=== PATIENT | male | born 1960 | race Caucasian/White ===

== ENCOUNTER 2017-11-10 10:02 | Outpatient (CLI) | payer OTHER | END 2017-11-10 10:03 | disposition home or self-care (01) | LOC: BICULT 10:02 | PROVIDERS: ATTEND Specialist | DX: R10.9 Unspecified abdominal pain (principal) | CPT/HCPCS: 76700; 76856 ==

== ENCOUNTER 2017-12-29 13:43 | Outpatient (CLI) | payer OTHER ==
--- NOTE | 2017-12-29 14:57 | CT ---
ABDOMEN AND PELVIC CT SCAN WITHOUT IV CONTRAST: Date: 12/29/17 HISTORY: 57-year-old male with history of known renal mass and renal stones. Patient has bilateral flank pain. FINDINGS: Lung bases are clear. Small, 1.0 cm diameter, low attenuation focus in the left lobe of the liver, statistically a small cy st. The gallbladder, pancreas, spleen, and adrenal glands are unremarkable. There are bilateral nonobstructing renal calculi. There is a somewhat poorly circumscribed 2.2 cm colette meter mass involving the lateral aspect of the upper pole of the right kidney, possibly a slightly co mplicated cyst, which is not completely characterized on this single noncontrast study. No evidence f or acute obstruction or ureteral calculus. No CT evidence for acute appendicitis. Unremarkable appearing urinary bladder. Prostatic calcificatio ns are noted. IMPRESSION: 1. Nonobstructing bilateral renal calculi. 2. 2.2 cm diameter low attenuation mass involving the lateral aspect of the upper right kidney, not definitively characterized, possibly a slightly complicated cyst. 3. Small cyst in left lobe of liver. 4. No evidence for other significant acute process in abdomen or pelvis. POS: [facility]
== END 2017-12-29 13:44 | disposition home or self-care (01) ==
LOC: BICCT 13:43
PROVIDERS: ATTEND Urology
DX: N20.0 Calculus of kidney (principal); N28.89 Other specified disorders of kidney and ureter; K76.89 Other specified diseases of liver
CPT/HCPCS: 74176

== ENCOUNTER 2017-12-30 16:49 | Outpatient (CLI) | payer OTHER ==
[2017-12-30 17:49] LABS: Bilirubin Negative (Negative); Blood, Urine Small (Negative); Clarity CLEAR (Clear); Glucose, Urine (Dipstick) Negative (Negative); Hemoglobin 15.9 g/dL (14.0-18.0); Leukocyte Negative (Negative); Mean Corpuscular HGB CONC 33.3 g/dL (32.0-36.0); Mean Corpuscular Hemoglobin 30.9 pg (27.0-31.0); Mean Corpuscular Volume 92.9 fL (78.0-98.0); Mean Platelet Volume 8.7 fL (7.4-10.4); Nitrite Negative (Negative); Platelet Count 209 thou/uL (130-400); Protein, Urine (Dipstick) Negative (Neg-Trace); RBC Distribution Width 11.4 % (11.5-14.5); Red Blood Cell (RBC) Count 5.14 mill/uL (4.70-6.10); Specific Gravity, Urine 1.004 (1.002-1.036); Urobilinogen 0.2 mg/dL (0.2-1.0); White Blood Cell (WBC) Count 8.2 thou/uL (4.8-10.8)
[2017-12-30 17:51] LABS: Bacteria/HPF None Seen HPF (None Seen); Hyaline Casts/LPF 0-3 HYALINE CAST LPF (0-3 Hyaline); RBC/HPF 0-3 HPF (0-3); Squamous Epithelial None Seen HPF (0-3); WBC/HPF None Seen HPF (0-3)
[2017-12-30 17:55] LABS: Prothrombin Time 12.9 SEC (12.0-14.7)
[2017-12-30 17:56] LABS: PTT 30.7 SEC (22.9-36.1)
--- NOTE | 2017-12-30 18:00 | RAD ---
PA AND LATERAL CHEST: Date: 12/30/17 HISTORY: Preoperative evaluation. FINDINGS: Cardiac silhouette and pulmonary vasculature are within normal limits. The lungs are clear. Osseous s tructures are intact. IMPRESSION: No acute cardiopulmonary process. POS: [facility]
[2017-12-30 18:18] LABS: ALT (SGPT) 9 U/L (8-55); AST (SGOT) 15 U/L (5-34); Albumin 4.5 g/dL (3.5-5.0); Alkaline Phosphatase 87 U/L (40-150); Anion Gap 9 mmol/L (10-20); BUN (Urea Nitrogen) 5 mg/dL (8.4-25.7); Bilirubin, Total 0.6 mg/dL (0.2-1.2); Calc. Creatinine Clearance 0 mL/min (70-130); Calcium 9.5 mg/dL (7.8-10.44); Carbon Dioxide 28 mmol/L (22-29); Chloride 104 mmol/L (98-107); Estimated GFR-MDRD Greater than 90; Globulin 3.2 g/dL (2.4-3.5); Glucose 86 mg/dL (70-105); Potassium 3.8 mmol/L (3.5-5.1); Protein, Total 7.7 g/dL (6.0-8.3); Sodium 137 mmol/L (136-145)
== END 2017-12-30 16:50 | disposition home or self-care (01) ==
LOC: LABBT 16:49
PROVIDERS: ATTEND Urology
DX: Z01.812 Encounter for preprocedural laboratory examination (principal); N28.89 Other specified disorders of kidney and ureter
CPT/HCPCS: 71046; 80053; 81001; 85027; 85610; 85730; 86850; 86900; 86901; 87086

== ENCOUNTER 2017-12-30 17:00 | Inpatient (IN) | payer OTHER ==
[2018-01-05] MEDS ORDERED: Levofloxacin 500 mg/D5W 100 ml Premix Bag ONE (06:06)
[2018-01-05] MEDS ORDERED: Sodium Chloride 0.9% 100 ML ONE (06:06)
[2018-01-05] MEDS ORDERED: CEFAZOLIN 1 GM VIAL ONE (06:06)
[2018-01-05] MEDS ORDERED: Midazolam HCl 2 mg/2 ml Vial ONE (06:35)
[2018-01-05] MEDS ORDERED: Fentanyl 100 MCG/2 ML VIAL ONE (06:35)
[2018-01-05] MEDS ORDERED: Acetaminophen 1,000 MG in Premix Bag 1 BAG IVPB PRN (07:23)
[2018-01-05] MEDS ORDERED: diphenhydrAMINE 25 MG CAP PO PRN (07:30)
[2018-01-05] MEDS ORDERED: Hydrocerin (Eucerin) Cream 120 gm Jar TOP PRN (07:30)
[2018-01-05] MEDS ORDERED: Promethazine HCl 25 MG/ML VIAL IM PRN ×2 (07:30→10:54)
[2018-01-05] MEDS ORDERED: traMADol HCl 50 MG TAB PO PRN ×2 (07:30)
[2018-01-05] MEDS ORDERED: HYDROcodone/Acetaminophen 5/325 mg Tablet PO PRN ×2 (07:30)
[2018-01-05] MEDS ORDERED: diphenhydrAMINE 50 MG/ML VIAL IM PRN (07:30)
[2018-01-05] MEDS ORDERED: diphenhydrAMINE 50 MG/ML VIAL IVP PRN ×2 (07:30→11:22)
[2018-01-05] MEDS ORDERED: Zolpidem Tartrate 5 MG TAB PO PRN (07:30)
[2018-01-05] MEDS ORDERED: Bupivacaine 0.25% 10 ML VIAL EPIDURAL PRN (07:30)
[2018-01-05] MEDS ORDERED: Naloxone HCl 0.4 mg/ml Vial IV PRN (07:30)
[2018-01-05] MEDS ORDERED: Ondansetron HCl/PF 4 MG/2 ML Vial IVP PRN ×2 (07:30→10:54)
[2018-01-05] MEDS ORDERED: Naloxone HCl 0.4 mg/ml Vial IVP PRN (07:30)
[2018-01-05] MEDS ORDERED: Promethazine HCl 25 MG SUPP PR PRN (07:30)
[2018-01-05] MEDS ORDERED: Promethazine HCl 25 MG/ML VIAL SLOW IVP PRN (10:54)
[2018-01-05] MEDS ORDERED: ePHEDrine/0.9% NaCl/PF SYRINGE 50 mg/10 ml ONE (11:06)
[2018-01-05] MEDS ORDERED: Lidocaine 1% PF 5 ML VIAL ONE (11:06)
[2018-01-05] MEDS ORDERED: Glycopyrrolate 0.2 MG/ML 5 ML SYRINGE ONE (11:06)
[2018-01-05] MEDS ORDERED: PROPOFOL 200 MG/20 ML VIAL ONE (11:06)
[2018-01-05] MEDS ORDERED: Vecuronium 10 MG VIAL ONE (11:06)
[2018-01-05] MEDS ORDERED: Dexamethasone 20 MG/5 ML VIAL ONE (11:06)
[2018-01-05] MEDS ORDERED: Ondansetron HCl/PF 4 MG/2 ML Vial ONE (11:06)
[2018-01-05] MEDS ORDERED: Mag-Al 1200 mg/1200 mg/30 ML UDCUP PO PRN (11:22)
[2018-01-05] MEDS ORDERED: hydrALAZINE 20 MG/ML VIAL SLOW IVP PRN ×2 (11:22)
[2018-01-05 11:47] LABS: #Lymphocytes 1.2 thou/uL (1.20-3.40); #Monocytes 0.5 thou/uL (0.11-0.59); #Neutrophils 13.3 thou/uL (1.40-6.50); %Basophils 0.2 % (0.0-1.0); %Eosinophils 0.1 % (0.0-10.0); %Lymphocytes 8.1 % (21.0-51.0); %Monocytes 3.5 % (0.0-10.0); Hemoglobin 13.5 g/dL (14.0-18.0); Mean Corpuscular HGB CONC 33.6 g/dL (32.0-36.0); Mean Corpuscular Hemoglobin 30.9 pg (27.0-31.0); Mean Corpuscular Volume 92.2 fL (78.0-98.0); Mean Platelet Volume 8.3 fL (7.4-10.4); Platelet Count 164 thou/uL (130-400); RBC Distribution Width 11.3 % (11.5-14.5); Red Blood Cell (RBC) Count 4.36 mill/uL (4.70-6.10); White Blood Cell (WBC) Count 15.1 thou/uL (4.8-10.8)
[2018-01-05 12:07] LABS: Anion Gap 13 mmol/L (10-20); BUN (Urea Nitrogen) 7 mg/dL (8.4-25.7); Calc. Creatinine Clearance 77 mL/min (70-130); Calcium 8.6 mg/dL (7.8-10.44); Carbon Dioxide 23 mmol/L (22-29); Chloride 106 mmol/L (98-107); Estimated GFR-MDRD Greater than 90; Glucose 140 mg/dL (70-105); Potassium 3.6 mmol/L (3.5-5.1); Sodium 138 mmol/L (136-145)
--- NOTE | 2018-01-05 12:28 | RAD ---
CHEST ONE VIEW: History: Repeat for pneumothorax. FINDINGS: There is slight decrease in the right sided pneumothorax measuring approximately 9 mm from the margin of the ribs to the pleural line. Atelectasis right lower lobe. IMPRESSION: Size decrease right sided pneumothorax. POS: [facility]
--- NOTE | 2018-01-05 12:53 | OP ---
DATE OF SERVICE: 01/05/2018 PREOPERATIVE DIAGNOSES: 1. A 57-year-old male with right upper pole mesophytic 2 cm renal mass suspicious for renal cell carcinoma. 2. Bilateral nonobstructing renal calculi. POSTOPERATIVE DIAGNOSES: 1. A 57-year-old male with right upper pole mesophytic 2 cm renal mass suspicious for renal cell carcinoma. 2. Bilateral nonobstructing renal calculi. PROCEDURE: Right open partial nephrectomy. SURGEON: Julia Aguilera D.O. ANESTHESIA: General epidural. COMPLICATIONS: postop CXR demonstrating 15% right pneumothorax DISPOSITION: To recovery room in stable condition. ESTIMATED BLOOD LOSS: 150-200 mL. IV FLUIDS: 2 liters. INTRAOPERATIVE FINDINGS: Right upper pole mesophytic renal mass suspicious for renal cell carcinoma, densely adherent right upper pole to the perineum. INDICATIONS FOR THE PROCEDURE AND HISTORY: Mr. Irwin is a pleasant 57-year -old male referred to me by Dr. Ott as he was found to have incidental right upper pole renal mass suspicious for renal cell carcinoma. The patient has been fully informed regarding differential diagnosis including benign and malignant etiology. However, as it is highly suspicious for renal cell carcinoma, advised regarding right partial nephrectomy. Risks and complications of the procedure were reviewed with him in detail as well as alternatives the option including total nephrectomy, various approaches both open and laparoscopic, watchful waiting, active surveillance , ablative therapy. He desired to proceed with right open partial nephrectomy. Risks and complications of the procedure including, but not limited to, bleeding, pain, infection, injury to adjacent structures such as major vasculature liver, bowel contents, lung cavity, pneumothorax, possibility of total nephrectomy, renal insufficiency requiring possible hemodialysis, PE DVT. As he does have nonobstructing renal calculi although small, there is a remote possibility of patient requiring a stent if migration of the stone. He verbalizes understanding and desired to proceed. DESCRIPTION OF THE PROCEDURE: After an informed consent is signed, the patient is taken to the operating room, placed in a supine position. Bilateral ALYCE hose , SCDs, and broad-spectrum antibiotics were provided. General endotracheal anesthesia was administered. The patient was placed in right up flank position with all pressure points padded and protected at all times. A 16 Khmer Bhatt catheter was passed while supine and attached to gravity bag. After the patient is appropriately positioned, we made an incision extraperitoneal 11th rib subcostal incision extending from the paraspinous muscle anteriorly. The subcutaneous fascia was opened to the limits of skin incision. The external and internal oblique fascia as transversalis was opened to the limits of skin incision. The retroperitoneal space was then developed using blunt and sharp dissection. The pleura was identified and kept out of harm's way. We did not breach the pleura and was bluntly and sharply dissected the retroperitoneal contents away from the pleura. The peritoneum, especially in the anterior superior portion near the mass was densely adherent to the upper pole of the kidney. Using sharp dissection, we mobilized the peritoneum completely. With the peritoneum mobilized, we used a Bookwalter for self-retaining exposure. The ureter was identified, and then isolated using a vessel loop and kept out of harm's way. We then mobilized the kidney completely off the densely adherent peritoneal attachments of the upper pole. The hilum was then identified. Using a curved Satinsky, we were able to have enough room for clamping hilum intact. Once this was well-developed, we then further mobilized the perirenal fat off the right upper pole renal mass which appeared to be adherent. The fat densely adherent to the mass itself was sent separately as tumor fat. While mobilizing the densely adhering Gerota's fascia, peritoneum off the upper pole, there was an inadvertent small laceration of the right kidney superficial while passing a LigaSure. We repaired this without the hilum clamped with 0 chromic on pledgets, and good hemostasis was noted. This was approximately 2cm away from our margin of resection required for the renal mass. As the hilum was dissected enough for Satinsky, it was clamped en bloc. Subsequently, ice was then placed into the retroperitoneal cavity for cold ischemia for 5 minutes. Subsequently, the ice was removed and we then performed a right partial nephrectomy. We initially scored the right renal mass with electrocautery. Using a back of a knife handle, the mass was bluntly dissected in its entirety. Grossly, normal renal parenchyma was seen with no gross evidence of residual mass in the lone pine kidney.. Frozen sections were negative on margin. There was one collecting system that we saw, which was suture ligated using 4-0 Vicryl in a running fashion. We then placed subsequent hemostatic stitches in the bed of the tumor resection using 4-0 Vicryl. Good hemostasis was noted. At this time, the defect of the kidney was then closed with 0 chromic with pledgets in a horizontal mattress fashion. Adequate closure was noted. We observed the margins of resection with clamp off which demonstrated no significant bleeding of concern. Total clamp time was 25 minutes. Bhavik and Diandra over our site. I mobilized the perirenal fat, and was able to wrap the suture line with perirenal Gerota's fat. The kidney appeared to be in normal anatomical position, ureter without kinking. The wound was copiously irrigated. A #10 DELROY was then placed in the right retroperitoneal space and was sutured to skin using 3-0 nylon. The skin was closed in two layers using 0 PDS. Prior to closure, we inspected the peritoneum and the pleural edge, which demonstrated no significant defect that could be identified. The patient tolerated the procedure well and transported to the recovery room in stable condition. [facility]
--- NOTE | 2018-01-05 14:31 | RAD ---
ONE VIEW CHEST: History: Evaluate for pneumothorax. Comparison: 12-05-17 FINDINGS: There appears to be a lateral pleural line along the right hemithorax suggestive of a moderate sized pneumothorax. There is lucency of the right hemithorax relative to the left. IMPRESSION: Concern for moderated sized right sided pneumothorax. Repeat exam recommended. Code CR. Telephoned Dr. Aguilera at 11:37 a.m. POS: [facility]
[2018-01-05] MEDS: Sodium Chloride 0.9% 1,000 ML IV SCH ×2 (15:00→23:10)
--- NOTE | 2018-01-05 15:01 | RAD ---
AP CHEST: Indication: History of right sided pneumothorax. Comparison: 01-05-18 FINDINGS: The right sided pneumothorax has slightly decreased in size. There is a small residual right apical p neumothorax remaining. Epidural catheter is stable. Left lung is clear. Patchy opacities within the r ight lung base are similar. Osseous structures are unchanged. IMPRESSION: 1. Slight decrease in size of right sided pneumothorax. 2. Persistent right basilar airspace opacity. POS: [facility]
[2018-01-05] MEDS: Albuterol Sulfate 1.25 MG/3 ML NEB NEB SCH ×2 (15:10→22:13)
[2018-01-05 15:41] VITALS: BMI 24.3
[2018-01-05] MEDS: cefTRIAXone\\ROCEPHIN 1 GM in Sodium Chloride 0.9% 100 ML IVPB SCH (15:59)
--- NOTE | 2018-01-05 19:51 | CON ---
DATE OF CONSULTATION: 01/05/2018 HISTORY OF PRESENT ILLNESS: Mr. Irwin is a 57-year-old gentleman who underwent a right open par tial nephrectomy today. Postoperatively, chest x-ray was obtained showing a moderate sized right pne umothorax. He has had a followup x-ray approximately 3 hours after his initial x-ray showing near re solution of the pneumothorax. PAST MEDICAL HISTORY: 1. Hyperlipidemia. 2. Renal stones. 3. Tobacco abuse. SOCIAL HISTORY: The patient smokes approximately a pack of cigarettes a day. ALLERGIES: None. PAST SURGICAL HISTORY: Right hand skin graft at age 2. PHYSICAL EXAMINATION LUNGS: Clear bilaterally. ABDOMEN: Soft. There is no crepitance. ASSESSMENT AND PLAN: Postoperative pneumothorax on the right -- the pleura was more than likely viol ated during his nephrectomy and this showed spontaneously continue to resolve.
[2018-01-05] MEDS: Atorvastatin Calcium 10 MG TAB PO SCH (20:06)
[2018-01-05] MEDS: Famotidine/PF 20 mg/2ml Vial SLOW IVP SCH (20:13)
[2018-01-05] MEDS: Docusate 100 MG CAP PO SCH (20:14)
[2018-01-05] MEDS: Simvastatin 20 MG TAB PO SCH (20:14)
[2018-01-05] MEDS ORDERED: Non-Formulary Item 1 EACH (Eszopiclone [Eszopiclone] 1 TAB) PO SCH (21:00)
[2018-01-05] MEDS: Zolpidem Tartrate 5 MG TAB PO SCH (22:10)
[2018-01-06 03:50] LABS: #Lymphocytes 1.5 thou/uL (1.20-3.40); #Monocytes 1.1 thou/uL (0.11-0.59); %Basophils 0.4 % (0.0-1.0); %Eosinophils 0.1 % (0.0-10.0); %Lymphocytes 14.3 % (21.0-51.0); %Monocytes 10.6 % (0.0-10.0); %Neutrophils 74.7 % (42.0-75.0); Hemoglobin 11.3 g/dL (14.0-18.0); Mean Corpuscular HGB CONC 33.6 g/dL (32.0-36.0); Mean Corpuscular Hemoglobin 31.3 pg (27.0-31.0); Mean Corpuscular Volume 93.2 fL (78.0-98.0); Mean Platelet Volume 8.7 fL (7.4-10.4); Platelet Count 143 thou/uL (130-400); RBC Distribution Width 11.3 % (11.5-14.5); Red Blood Cell (RBC) Count 3.62 mill/uL (4.70-6.10); White Blood Cell (WBC) Count 10.7 thou/uL (4.8-10.8)
[2018-01-06 04:09] LABS: Anion Gap 9 mmol/L (10-20); BUN (Urea Nitrogen) 11 mg/dL (8.4-25.7); Calc. Creatinine Clearance 67 mL/min (70-130); Calcium 8.1 mg/dL (7.8-10.44); Carbon Dioxide 23 mmol/L (22-29); Chloride 106 mmol/L (98-107); Estimated GFR-MDRD 74; Glucose 123 mg/dL (70-105); Potassium 3.9 mmol/L (3.5-5.1); Sodium 134 mmol/L (136-145)
[2018-01-06] MEDS: Sodium Chloride 0.9% 1,000 ML IV SCH (05:08)
[2018-01-06] MEDS: Albuterol Sulfate 1.25 MG/3 ML NEB NEB SCH ×3 (06:44→22:05)
[2018-01-06] MEDS ORDERED: Sodium Chloride 0.9% 1,000 ML IV SCH (08:02)
--- NOTE | 2018-01-06 08:34 | RAD ---
CHEST 1 VIEW: HISTORY: Pneumothorax. Followup. COMPARISON: 10/05/17. FINDINGS: Cardiac silhouette is magnified by projection. Pulmonary vasculature is slightly engorged with patch y areas of parenchymal opacity, similar in appearance to the previous exam. Right pneumothorax is sl ightly larger than on the prior exam, now extending up to 1.1 cm from the lateral thoracic wall pleur a. Blunting of the left lateral costophrenic angle. Mediastinum remains midline. Opaque tubing over th e right hilum extending from the right shoulder remains unchanged in position. IMPRESSION: 1. While the right pneumothorax remains small, it has increased in size slightly since the most rece nt study. 2. Left pleural fluid. Mild pulmonary vascular congestion. POS: [facility]
--- NOTE | 2018-01-06 08:36 | PRG ---
DATE OF SERVICE: 01/06/2018 SUBJECTIVE: He had discomfort with inspiration. Mild nausea. Denies emesis. PHYSICAL EXAMINATION: VITAL SIGNS: T-max of 100.0, 99.6, 94, 26, 94% on 2 liters, blood pressure 112/ 47. I's and O's is 2870 in, 1250 out. He is positive 1.3 liters. DELROY output 165 since OR, urine output clear at 1250. LUNGS: Decreased inspiratory effort on the right side consistent with a pneumothorax. ABDOMEN: Soft. Incision is clean, dry and intact. Minimal drainage from the incision site. DELROY draining serosanguineous fluid. Bowel sounds are present; however, somewhat decreased. : Urine output is clear. EXTREMITIES: No cyanosis, clubbing or edema. Bilateral ALYCE hose and SCDs in place. LABORATORY: Pathology pending. Chest x-ray this morning demonstrates stable 15% pneumothorax, slight enlargement. Which I reviewed with Dr. Short. White count is decreased from 15 to 10.7 hemoglobin 13.5 to 11.3 platelet 143. Renal function stable with creatinine 1.04. IMPRESSION AND PLAN: 1. Mr. Irwin is 57-year-old male postop day #1 status post right open partial nephrectomy, pathology pending. 2. Right 15% pneumothorax. CT Surgery has been consulted, daily chest x-ray is advised. will continue IMCU monitoring with continuous pulse ox. It is felt that his pneumothorax will most likely spontaneously resolve. Continue aggressive IS, pulmonary toilet. will recheck H&H this afternoon. The patient to be out of bed. We will hold Lovenox deep venous thrombosis prophylaxis as I am monitoring his H&H and he continues to have serosanguineous output from his DELROY drain. [facility]
[2018-01-06] MEDS: Famotidine/PF 20 mg/2ml Vial SLOW IVP SCH ×2 (09:30→20:32)
[2018-01-06] MEDS: Docusate 100 MG CAP PO SCH ×2 (09:30→20:32)
[2018-01-06] MEDS: cefTRIAXone\\ROCEPHIN 1 GM in Sodium Chloride 0.9% 100 ML IVPB SCH (14:11)
[2018-01-06 15:30] LABS: Hemoglobin 11.8 g/dL (14.0-18.0)
[2018-01-06] MEDS: fentaNYL Citrate/PF 1,250 MCG, Bupivacaine 25 ML in Sodium Chloride 0.9% 250 ML 200 ML EPIDURAL SCH (16:11)
[2018-01-06] MEDS ORDERED: Acetaminophen 325 MG TAB PO PRN (17:49)
[2018-01-06] MEDS: Atorvastatin Calcium 10 MG TAB PO SCH (20:28)
[2018-01-06] MEDS: Simvastatin 20 MG TAB PO SCH (20:33)
[2018-01-06] MEDS ORDERED: Meropenem 2 GM in Admixture Fee 1 EACH IVPB SCH (22:00)
[2018-01-06] MEDS: Meropenem 2 GM in Sodium Chloride 0.9% 100 ML IVPB SCH (22:05)
[2018-01-06] MEDS: Zolpidem Tartrate 5 MG TAB PO SCH (22:05)
--- NOTE | 2018-01-07 01:32 | CON ---
DATE OF CONSULTATION: 01/06/2018 HISTORY OF PRESENT ILLNESS: Mr. Irwin is a 57-year-old male, who underwent a partial nephrectomy. I was consulted because of his presence in the IMU. He actually has no complaints and says he has minimal pain. He did have apparently a pneumothorax yesterday on x-ray that almost completely resolved. Chest radiograph today showed a tiny pneumothorax. He has small left effusion. He denies shortness of breath. He has had a low grade temperature up to 100.8. PAST MEDICAL HISTORY: Remarkable for his: 1. Renal mass that has been resected. 2. Lipid disorder. 3. History of nephrolithiasis. SOCIAL HISTORY: He is a pack a day smoker. He is not a daily drinker. FAMILY HISTORY: Not obtained. REVIEW OF SYSTEM: 10 point review of system completed, otherwise negative. ALLERGIES: He reports no drug allergies. PAST SURGICAL HISTORY: He has had surgical history remarkable for skin grafting when he was a small child. PHYSICAL EXAMINATION: GENERAL: He is in no distress. VITAL SIGNS: He is afebrile, temperature max 100.8, heart rate 83, respiratory rate 16 and still low 20s, oximetry is at 94 on 2 liters, blood pressure 105/57. HEENT: Pupils equal. Sclerae is icteric. NECK: Supple. LUNGS: Clear. HEART: Regular rhythm. S1 and S2 are normal. ABDOMEN: Soft and nontender, without masses. EXTREMITIES: No clubbing, cyanosis, or edema. NEUROLOGIC: Nonfocal. LABORATORY AND X-RAY FINDINGS: Chest radiograph has been reviewed. White count is 10.7, hemoglobin 11.3, platelets 143. Electrolytes were unremarkable. Sodium 134, potassium 3.9, chloride 106, bicarb 23, BUN 11, creatinine 1.04. IMPRESSION: Low grade temperature elevation likely secondary to atelectasis. I do think it is reasonable to blood culture him and change antimicrobial therapy. I will continue to follow with him. We will check a chest x-ray in the morning. This is a 70-minute consult, with greater than 50% of the time was spent coordinating care on the unit. [facility]
[2018-01-07 04:01] LABS: #Lymphocytes 2.6 thou/uL (1.20-3.40); #Monocytes 0.9 thou/uL (0.11-0.59); #Neutrophils 8.8 thou/uL (1.40-6.50); %Eosinophils 0.1 % (0.0-10.0); %Lymphocytes 21.3 % (21.0-51.0); %Monocytes 7.4 % (0.0-10.0); %Neutrophils 71.2 % (42.0-75.0); Hemoglobin 11.5 g/dL (14.0-18.0); Mean Corpuscular HGB CONC 33.7 g/dL (32.0-36.0); Mean Corpuscular Hemoglobin 31.2 pg (27.0-31.0); Mean Corpuscular Volume 92.7 fL (78.0-98.0); Mean Platelet Volume 8.4 fL (7.4-10.4); Platelet Count 137 thou/uL (130-400); RBC Distribution Width 11.2 % (11.5-14.5); Red Blood Cell (RBC) Count 3.68 mill/uL (4.70-6.10); White Blood Cell (WBC) Count 12.4 thou/uL (4.8-10.8)
[2018-01-07 04:18] LABS: Anion Gap 10 mmol/L (10-20); BUN (Urea Nitrogen) 7 mg/dL (8.4-25.7); Calc. Creatinine Clearance 78 mL/min (70-130); Calcium 8.6 mg/dL (7.8-10.44); Carbon Dioxide 25 mmol/L (22-29); Chloride 104 mmol/L (98-107); Estimated GFR-MDRD 90; Glucose 98 mg/dL (70-105); Potassium 3.7 mmol/L (3.5-5.1); Sodium 135 mmol/L (136-145)
[2018-01-07] MEDS: Ondansetron HCl/PF 4 MG/2 ML Vial IVP PRN (05:35)
[2018-01-07] MEDS: Meropenem 2 GM in Sodium Chloride 0.9% 100 ML IVPB SCH ×3 (05:35→21:04)
[2018-01-07] MEDS: Albuterol Sulfate 1.25 MG/3 ML NEB NEB SCH ×3 (06:28→22:12)
--- NOTE | 2018-01-07 08:03 | RAD ---
PORTABLE CHEST 1 VIEW: DATE: 01/07/2018. TIME: 4:34 a.m. HISTORY: Pneumothorax followup. FINDINGS: No significant interval change is seen since the previous day's exam.Small right pneumothorax is stab le. Discussed over the telephone with Dr. Aguilera at 7:40 a.m. CODE CR POS: [facility]
--- NOTE | 2018-01-07 08:22 | PRG ---
DATE OF SERVICE: 01/07/2018 SUBJECTIVE: patient feeling sleepy; easily arousable. He states the pain is well controlled with epidural. He has had mild nausea, not yet passed flatus. He continues to perform aggressive plantar dorsiflexion of the lower extremities. Bilateral ALYCE SCDs are in place. Denies shortness of breath, CP. PHYSICAL EXAMINATION: VITAL SIGNS: Stable. T-max 100.6 at 4:00 p.m. yesterday, has been afebrile subsequently, last Tylenol was given yesterday at 4:00 o' clock with a low-grade temperature. I's and O's 2550 in, urine output 2000. patient is Hep-Locked. DELROY 30 mL over 24 hours, serosanguineous. PULMONARY: Bilateral breath sounds are appreciated. ABDOMEN: Incision is clean, dry, and intact, No significant discharge at the incision site, DELROY is adequately secured. Bowel sounds are present; however, mildly decreased. There is no rigidity, no rebound. EXTREMITIES: No cyanosis, clubbing or edema. Blood culture obtained by Dr. Huggins negative thus far. LABORATORY DATA: white count of 12, hemoglobin 11.5, which has been stable for 24 hours. Renal function is stable at 0.87. Sodium 135, potassium 3.7. 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 Chest x-ray this morning demonstrates stable small right pneumothorax, stable with no significant progression IMPRESSION AND PLAN: 1. Mr. 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 2 Stable right 15% pneumothorax, CT surgery consultation in chart. appreciate Dr. Huggins's consultation. Due to low grade fever he has been changed from ceftriaxone to meropenem, blood culture obtained which is negative thus far. RECOMMENDATION: He will continue aggressive IC, pulmonary toilet, albuterol nebs q.8 hours. His CBC and renal function remained stable. PT walking program has been consulted, as I do want the patient to be aggressively out of bed to expedite return of his bowel function, we will provide Dulcolax x1. Continue clear liquids for now. We'll advance diet, if nausea resolved, passing flatus. Pharmacologic DVT prophylaxis will be provided if H&H stable and DELROY output remains minimal. He will remain in the IMCU likely over the weekend; transferred to surgical floor we'll need to be cleared by pulmonology. Continue Bhatt, meropenem MTDD
[2018-01-07] MEDS: Famotidine/PF 20 mg/2ml Vial SLOW IVP SCH ×2 (09:51→21:04)
[2018-01-07] MEDS: Docusate 100 MG CAP PO SCH ×2 (09:51→21:03)
[2018-01-07] MEDS: Bisacodyl 10 MG SUPP PR PRN (09:52)
--- NOTE | 2018-01-07 10:53 | PRG ---
DATE OF SERVICE: 01/07/2018 Mr. Irwin has no more fever. PHYSICAL EXAMINATION: VITAL SIGNS: His heart rate is 60, respiratory rate 16, oximetry is 96, blood pressure 110/59. LUNGS: Clear. HEART: Regular rhythm. ABDOMEN: Soft. Chest radiograph shows haziness right medial heart border and small pleural effusion on the left. Th ere is a tiny pneumothorax on the right. His abdomen is nontender. Cultures done yesterday are negative. We will continue with broad antimicrobial coverage empirically. It is difficult to say whether or no t he has a pneumonia. Perioperatively given atelectasis, but occurs after surgery and given the fact that his fever started relatively early after surgery. We will continue current antimicrobial care in the IMU.
[2018-01-07] MEDS: Atorvastatin Calcium 10 MG TAB PO SCH (21:03)
[2018-01-07] MEDS: Simvastatin 20 MG TAB PO SCH (21:03)
[2018-01-07] MEDS: fentaNYL Citrate/PF 1,250 MCG, Bupivacaine 25 ML in Sodium Chloride 0.9% 250 ML 200 ML EPIDURAL SCH (21:53)
[2018-01-08 04:00] LABS: #Lymphocytes 1.2 thou/uL (1.20-3.40); #Neutrophils 13.1 thou/uL (1.40-6.50); %Basophils 0.3 % (0.0-1.0); %Eosinophils 0.1 % (0.0-10.0); %Lymphocytes 7.5 % (21.0-51.0); %Monocytes 6.7 % (0.0-10.0); %Neutrophils 85.4 % (42.0-75.0); Hemoglobin 12.3 g/dL (14.0-18.0); Mean Corpuscular HGB CONC 34.1 g/dL (32.0-36.0); Mean Corpuscular Hemoglobin 31.5 pg (27.0-31.0); Mean Corpuscular Volume 92.4 fL (78.0-98.0); Mean Platelet Volume 8.7 fL (7.4-10.4); Platelet Count 146 thou/uL (130-400); RBC Distribution Width 11.1 % (11.5-14.5); Red Blood Cell (RBC) Count 3.91 mill/uL (4.70-6.10); White Blood Cell (WBC) Count 15.3 thou/uL (4.8-10.8)
[2018-01-08 04:33] LABS: Anion Gap 12 mmol/L (10-20); BUN (Urea Nitrogen) 7 mg/dL (8.4-25.7); Calc. Creatinine Clearance 77 mL/min (70-130); Calcium 9.3 mg/dL (7.8-10.44); Carbon Dioxide 26 mmol/L (22-29); Chloride 101 mmol/L (98-107); Estimated GFR-MDRD 89; Glucose 107 mg/dL (70-105); Potassium 4.1 mmol/L (3.5-5.1); Sodium 135 mmol/L (136-145)
[2018-01-08] MEDS: Meropenem 2 GM in Sodium Chloride 0.9% 100 ML IVPB SCH ×3 (06:24→21:05)
[2018-01-08] MEDS: Albuterol Sulfate 1.25 MG/3 ML NEB NEB SCH ×3 (07:11→22:37)
--- NOTE | 2018-01-08 08:24 | RAD ---
CHEST 1 VIEW: HISTORY: Dyspnea. Followup. COMPARISON: 01/07/2018. FINDINGS: Cardiac silhouette is magnified by projection. Pulmonary vasculature unremarkable. Atelectasis at t he left base is stable. Small right apical pneumothorax is unchanged. Mediastinum remains midline. testing projects administrator leads overlie the chest. IMPRESSION: 1. Small right apical pneumothorax, stable. 2. Left basilar atelectasis, stable. POS: [facility]
[2018-01-08] MEDS: Famotidine/PF 20 mg/2ml Vial SLOW IVP SCH ×2 (09:20→21:00)
[2018-01-08] MEDS: Docusate 100 MG CAP PO SCH ×2 (09:21→21:00)
--- NOTE | 2018-01-08 13:07 | PRG ---
DATE OF SERVICE: 01/08/2018 SUBJECTIVE: The patient is status post a right partial nephrectomy with a small right pneumothorax b eing monitored. His diet was advanced yesterday, although he reports not eating anything and still f eeling nauseous without any or at least very minimal gas passing. He is ambulated and he is working on his incentive spirometry. OBJECTIVE: VITALS SIGNS: Stable. T-max 97.8, satting 94%-97% on 2 liters. He had more than 2 liters out from the Bhatt catheter in the past 24 hours and 30-40 for a 24-hour period from the Teddy-Alexander. ABDOMEN: Softly distended with good bowel sounds. Teddy-Alexander drain is serosanguineous. Bhatt ca theter was yellow. He can pull about 1200 on the incentive spirometer. We reviewed this in detail a nd gave him a goal of 1500 by the end of the day. LABORATORY DATA: Reveal a white count slightly up to 15.3. Creatinine is good at 0.88. Chest x-ray revealed stable, which I reviewed personally, but may be slightly improved right pneumothorax. ASSESSMENT AND PLAN: A 57-year-old male status post partial nephrectomy with small right pneumothora x, doing well. Hold his regular food and go back to clears, go easy on his intake, ambulate, pulmona ry toilet, pain for epidural and anesthesia and repeat chest x-ray in the morning.
--- NOTE | 2018-01-08 15:36 | PRG ---
DATE OF SERVICE: 01/08/2018 SUBJECTIVE: The patient is doing reasonably well, had no complaints. OBJECTIVE: VITAL SIGNS: Temperature is 98.2, pulse 76, blood pressure 122/69, O2 saturation 96% on 2 liters. HEENT: Unremarkable. NECK: No JVD. LUNGS: Clear. CARDIAC: S1 and S2 regular. ABDOMEN: Slightly tender along the right flank. EXTREMITIES: No edema. LABORATORY DATA: White blood cell count 15.3, hematocrit 36.1, platelet count 146. BUN 7, creatinin e 0.8. ASSESSMENT: Stable pulmonary status, he could have pneumonia versus atelectasis. He is currently on antibiotics. RECOMMENDATION: He seems to be suitable for transfer out to telemetry. Given that he has an epidura l pump, he probably should remain on monitor.
[2018-01-08] MEDS: Simvastatin 20 MG TAB PO SCH (21:00)
[2018-01-09 03:53] LABS: #Lymphocytes 1.1 thou/uL (1.20-3.40); #Monocytes 1.3 thou/uL (0.11-0.59); %Basophils 0.1 % (0.0-1.0); %Eosinophils 0.1 % (0.0-10.0); %Lymphocytes 6.9 % (21.0-51.0); %Monocytes 8.6 % (0.0-10.0); %Neutrophils 84.3 % (42.0-75.0); Hemoglobin 11.8 g/dL (14.0-18.0); Mean Corpuscular HGB CONC 34.4 g/dL (32.0-36.0); Mean Corpuscular Hemoglobin 31.7 pg (27.0-31.0); Mean Corpuscular Volume 92.1 fL (78.0-98.0); Mean Platelet Volume 8.8 fL (7.4-10.4); Platelet Count 144 thou/uL (130-400); Red Blood Cell (RBC) Count 3.72 mill/uL (4.70-6.10); White Blood Cell (WBC) Count 15.5 thou/uL (4.8-10.8)
[2018-01-09 04:13] LABS: Anion Gap 11 mmol/L (10-20); BUN (Urea Nitrogen) 9 mg/dL (8.4-25.7); Calc. Creatinine Clearance 81 mL/min (70-130); Calcium 8.9 mg/dL (7.8-10.44); Carbon Dioxide 27 mmol/L (22-29); Chloride 98 mmol/L (98-107); Estimated GFR-MDRD Greater than 90; Glucose 104 mg/dL (70-105); Sodium 132 mmol/L (136-145)
[2018-01-09] MEDS: Meropenem 2 GM in Sodium Chloride 0.9% 100 ML IVPB SCH ×3 (05:38→21:09)
[2018-01-09] MEDS: Albuterol Sulfate 1.25 MG/3 ML NEB NEB SCH ×3 (07:35→22:15)
--- NOTE | 2018-01-09 07:57 | RAD ---
CHEST 1 VIEW: HISTORY: Pneumothorax. Followup. COMPARISON: 01/08/2018. FINDINGS: Cardiac silhouette is magnified by projection. Atelectasis at the left base is stable. Tiny right a pical pneumothorax is smaller than on the prior study. Mediastinum is midline. IMPRESSION: 1. Near-complete interval resolution of right apical pneumothorax, 2. findings are otherwise stable. POS: [facility]
[2018-01-09] MEDS ORDERED: HYDROcodone/Acetaminophen 7.5/325 mg Tablet PO PRN (08:22)
[2018-01-09] MEDS: Docusate 100 MG CAP PO SCH ×2 (09:23→21:09)
[2018-01-09] MEDS: Famotidine/PF 20 mg/2ml Vial SLOW IVP SCH ×2 (09:23→21:09)
--- NOTE | 2018-01-09 13:59 | PRG ---
DATE OF SERVICE: 01/09/2018 SUBJECTIVE: He feels better, had no acute complaints today. PHYSICAL EXAMINATION: VITAL SIGNS: Temperature is 98.1, pulse 77, respirations 18, O2 sat 96% on 2 liters, blood pressure 107/57. HEENT: Unremarkable. NECK: No JVD. LUNGS: Clear anteriorly. CARDIOVASCULAR: S1 and S2 regular. ABDOMEN: Soft. EXTREMITIES: Edema. IMAGING DATA: Chest x-ray shows near resolution of right apical pneumothorax. LABORATORY DATA: White blood cell count 15, hematocrit 34.3, platelet count 144. Sodium 132, potass ium 4, chloride 98, CO2 27, BUN 9, creatinine 0.8, glucose 104. ASSESSMENT: 1. Stable pulmonary status. 2. Fairly clear x-ray, so unlikely that he has pneumonia. 3. Status post partial nephrectomy. PLAN: Increase activity as tolerated. Once again, the patient looks stable for transfer out to the floor.
--- NOTE | 2018-01-09 15:55 | PRG ---
DATE OF SERVICE: 01/09/2018 SUBJECTIVE: The patient has done well overnight. He did pass some gas and has had less nausea and tolerated broth. He is not very hungry, but he would likely prefer regular food at this point. OBJECTIVE: Vitals have been stable, satting 95% to 98% on 2 liters. T-max 100.3, current 99.6. Urine output more than 2 liters in the last 24 hours. DELROY drain about 40mL. LABORATORY DATA: His white count is stable with decreased neutrophils. Sodium is 132 despite being negative a liter for the day. His creatinine is good at 0.83. Chest x-ray was reviewed personally and by the report showing near complete resolution of his pneumothorax. ASSESSMENT: We have a 57-year-old male status post partial nephrectomy with postop pneumothorax almost resolved and improving bowel function. Continue current plan below and anticipate that Dr. Aguilera will likely remove his Bhatt and Teddy-Alexander tomorrow. [facility]
[2018-01-09] MEDS: HYDROcodone/Acetaminophen 7.5/325 mg Tablet PO PRN ×2 (18:37→23:08)
[2018-01-09] MEDS: Simvastatin 20 MG TAB PO SCH (21:09)
[2018-01-10 04:20] LABS: #Lymphocytes 1.1 thou/uL (1.20-3.40); #Monocytes 1.3 thou/uL (0.11-0.59); #Neutrophils 11.7 thou/uL (1.40-6.50); %Basophils 0.1 % (0.0-1.0); %Eosinophils 0.2 % (0.0-10.0); %Lymphocytes 7.8 % (21.0-51.0); %Monocytes 9.3 % (0.0-10.0); %Neutrophils 82.7 % (42.0-75.0); Hemoglobin 12.1 g/dL (14.0-18.0); Mean Corpuscular HGB CONC 33.9 g/dL (32.0-36.0); Mean Corpuscular Hemoglobin 31.6 pg (27.0-31.0); Mean Platelet Volume 8.6 fL (7.4-10.4); Platelet Count 187 thou/uL (130-400); RBC Distribution Width 11.2 % (11.5-14.5); Red Blood Cell (RBC) Count 3.85 mill/uL (4.70-6.10); White Blood Cell (WBC) Count 14.1 thou/uL (4.8-10.8)
[2018-01-10 04:35] LABS: Anion Gap 10 mmol/L (10-20); BUN (Urea Nitrogen) 11 mg/dL (8.4-25.7); Calc. Creatinine Clearance 77 mL/min (70-130); Carbon Dioxide 27 mmol/L (22-29); Chloride 100 mmol/L (98-107); Estimated GFR-MDRD Greater than 90; Glucose 115 mg/dL (70-105); Potassium 4.1 mmol/L (3.5-5.1); Sodium 133 mmol/L (136-145)
[2018-01-10] MEDS: HYDROcodone/Acetaminophen 7.5/325 mg Tablet PO PRN ×3 (04:36→15:11)
[2018-01-10] MEDS: Meropenem 2 GM in Sodium Chloride 0.9% 100 ML IVPB SCH ×2 (05:55→17:07)
--- NOTE | 2018-01-10 08:00 | RAD ---
PORTABLE AP CHEST RADIOGRAPH: Date: 01-10-18 History: Follow up right sided pneumothorax. Comparison: 01-09-18, 01-08-18 FINDINGS: Again noted is a tiny right apical pneumothorax. This pneumothorax is smaller than on the prior study of 01-08-18. Atelectasis is present at the right lung base. There has been improvement in aeration at the left lung base. Subsegmental atelectasis in the left midlung zone is again present. There is que stion of very tiny left pleural effusion. Cardiac silhouette and pulmonary vasculature are within nor mal limits. No other interval change. IMPRESSION: 1. Tiny right apical pneumothorax. 2. Bibasilar atelectasis. POS: [facility]
--- NOTE | 2018-01-10 08:19 | PRG ---
DATE OF SERVICE: 01/10/2018 SUBJECTIVE: The patient having somewhat of a poor appetite; however, tolerating regular diet, no emesis. Passing flatus, has not yet had a bowel movement. PHYSICAL EXAMINATION: VITAL SIGNS: Stable. Temperature 98, 75, 18, 96% on 2 liters, blood pressure 119/70. I's and O's 1440 in, 2200 out. DELROY 8 mL over the last 24 hours. PULMONARY: Bilateral breath sounds are appreciated. ABDOMEN: Bowel sounds are active. No rigidity, no rebound. Incision is clean , dry, and intact. DELROY with scant output. EXTREMITIES: No cyanosis, clubbing or edema. LABORATORY DATA: White count is 14, hemoglobin 12, platelet 187. Creatinine is 0.8. Blood cultures negative at 48 hours. Chest x-ray this morning demonstrates stable minimal right apical pneumothorax, resolving. No significant change from yesterday. IMPRESSION AND PLAN: 1. Mr. Irwin is a 57-year-old male postop day #5, status post right open partial nephrectomy. 2. Right small hemothorax postop, resolving. He is saturating well. will check room air pulse ox; will conference with Dr. Huggins regarding outpatient antibiotic regimen. If it is okay with him I would provide Levaquin as an outpatient. Continue IS, albuterol nebs, aggressive ambulation. Bhatt has been removed today. If cleared by Dr. Huggins will transition to the regular floor for possible discharge this afternoon versus tomorrow. 3. Mild leukocytosis, persistent, likely due to right pneumothorax and atelectasis. He has been afebrile for more than 24 hours. await for pulmonary input before transfer discharge when stable per Pulmonology as well. [facility]ITALFarhana
[2018-01-10] MEDS: Docusate 100 MG CAP PO SCH (08:47)
[2018-01-10] MEDS: Enoxaparin Sodium 40 MG/0.4 ML SYRINGE SC SCH ×2 (08:48→13:18)
[2018-01-10] MEDS: Famotidine/PF 20 mg/2ml Vial SLOW IVP SCH (08:48)
[2018-01-10] MEDS: Bisacodyl 10 MG SUPP PR PRN (08:48)
[2018-01-10] MEDS: Albuterol Sulfate 1.25 MG/3 ML NEB NEB SCH ×2 (09:39→15:02)
[2018-01-10 10:54] VITALS: TEMP 98.5
[2018-01-10 15:10] VITALS: BP 114/64
[2018-01-10] MEDS: Ondansetron HCl/PF 4 MG/2 ML Vial IVP PRN (15:14)
--- NOTE | 2018-01-10 19:25 | PRG ---
DATE OF SERVICE: 01/10/2018 SUBJECTIVE: Mr. Irwin is doing well. He says he feels achy today. OBJECTIVE: VITAL SIGNS: He has not been febrile. Heart rates in the 60s-80s. Respiratory rates in the teens. Oximetry is 93 on room air. Blood pressure 114/64. LUNGS: Clear. IMPRESSION: ? pneumonia. We will switch him to Omnicef. It would not be unreasonable for him to go home.
[2018-01-10] MEDS ORDERED: Cefdinir 300 MG CAP PO SCH (21:00)
--- NOTE | 2018-01-11 01:44 | DIS ---
DATE OF ADMISSION: 01/05/2018 DATE OF DISCHARGE: 01/10/2018 ADMITTING DIAGNOSIS: Right upper pole renal mass. 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 DISPOSITION: Home to self-care. DISCHARGE MEDICATIONS: Include Zofran 4 mg #30 ODT p.r.n. for nausea, Colace # 30 p.r.n., Omnicef 300 mg 1 p.o. b.i.d. for 10 days, [place] 7.5/325 #50 one to two p.o. q.6-8 hours p.r.n. FOLLOWUP: 1. Followup appointment with Urology this Wednesday at 8:15 a.m. 2. Followup with Pulmonology in 1-month interval with followup chest x-ray. BRIEF HOSPITAL COURSE: Mr. Mendoza is a 57-year-old male who was referred to me by Dr. Ott for incidental right renal mass. This was highly concerning for renal cell carcinoma. He underwent right open partial nephrectomy. Surgery itself was uneventful. Minimal blood loss was noted. The right renal mass was well encapsulated; however, this was densely adherent to the perinephritic fat and adjacent structures. In the postop PACU period, we did obtain a chest x-ray demonstrated a small pneumothorax. I did consult CT Surgery, Dr. Kong, who advised regarding observation given small nature of the right pneumothorax. Subsequently, he was followed by Dr. Huggins while in step down in IMCU, he has been saturating well. He has had reactive atelectasis on aggressive IS and albuterol nebs. He is saturating well on room air. His DELROY output has been minimal over the last few days, 8 mL over the last 24 hours removed today at bedside. His catheter has been removed and he has been voiding uneventfully. His appetite has been somewhat poor, due to intermittent nausea. However, he has been tolerating clears, able to sustain some regular food and having bowel movements and active bowel sounds. Patient was advised regarding another observation overnight, versus discharge as he is having bowel movements and passing gas. He desires to be discharged home as he feels fatigued and states that he would rather rest at home in his own bed. As he has been afebrile, with normal renal function and H&H stable, will discharge home this afternoon. I did conference with Dr. Huggins. He has been cleared from a pulmonary standpoint to be discharged home. He did recommend outpatient Omnicef to continue. CONDITION: Stable. instructions to call me if significant fever greater than 101, significant flank pain, gross hematuria, or discharge from the incision site. MTDD
== END 2018-01-10 17:15 | disposition home or self-care (01) | DRG 657 ==
LOC: SURG A 01-05 05:44 → IMCU/EMU 01-05 13:39
PROVIDERS: ADMIT Urology; ATTEND Urology
PROC: 0TB00ZZ Excision of Right Kidney, Open Approach (ICD-10-PCS; principal; 2018-01-05)
DX: C64.1 Malignant neoplasm of right kidney, except renal pelvis (principal); J95.811 Postprocedural pneumothorax; N20.0 Calculus of kidney; K21.9 Gastro-esophageal reflux disease without esophagitis; E78.5 Hyperlipidemia, unspecified; F17.210 Nicotine dependence, cigarettes, uncomplicated; Y83.6 Removal of other organ (partial) (total) as the cause of abnormal reaction of the patient, or of later complication, without mention of misadventure at the time of the procedure
CPT/HCPCS: 36415; 71045; 80048; 85025; 87040; 88305; 88307; 88329; 94640; A4216; G8978-GP-CK; G8979-GP-CK; G8980-GP-CK; J0690; J0696; J1100; J1200; J1650; J1956; J2001; J2185; J2250; J2405; J2704; J3010; J3490; J7050; S0028

== ENCOUNTER 2018-01-31 12:12 | Emergency (ER) | payer OTHER ==
[~2018-01-31 12:12] MED LIST: ISOVUE-370 76%-LOCM 1 ML ONE
[2018-01-31 12:55] LABS: #Basophils 0.1 thou/uL (0.0-0.2); #Lymphocytes 2.2 thou/uL (1.20-3.40); #Monocytes 0.6 thou/uL (0.11-0.59); #Neutrophils 4.9 thou/uL (1.40-6.50); %Basophils 0.8 % (0.0-1.0); %Eosinophils 0.3 % (0.0-10.0); %Lymphocytes 28.4 % (21.0-51.0); %Monocytes 7.6 % (0.0-10.0); %Neutrophils 62.9 % (42.0-75.0); Hemoglobin 13.9 g/dL (14.0-18.0); Mean Corpuscular HGB CONC 32.1 g/dL (32.0-36.0); Mean Corpuscular Hemoglobin 29.7 pg (27.0-31.0); Mean Corpuscular Volume 92.6 fL (78.0-98.0); Mean Platelet Volume 8.2 fL (7.4-10.4); Platelet Count 208 thou/uL (130-400); RBC Distribution Width 11.8 % (11.5-14.5); Red Blood Cell (RBC) Count 4.66 mill/uL (4.70-6.10); White Blood Cell (WBC) Count 7.8 thou/uL (4.8-10.8)
[2018-01-31] MEDS ORDERED: Ondansetron PF 4 MG/2 ML Vial ONE (13:00)
[2018-01-31 13:07] LABS: ALT (SGPT) 19 U/L (8-55); AST (SGOT) 18 U/L (5-34); Albumin 4.2 g/dL (3.5-5.0); Alkaline Phosphatase 92 U/L (40-150); Anion Gap 12 mmol/L (10-20); BUN (Urea Nitrogen) 10 mg/dL (8.4-25.7); Bilirubin, Total 0.5 mg/dL (0.2-1.2); Calc. Creatinine Clearance 0 mL/min (70-130); Calcium 9.4 mg/dL (7.8-10.44); Carbon Dioxide 25 mmol/L (22-29); Chloride 105 mmol/L (98-107); Estimated GFR-MDRD Greater than 90; Globulin 3.4 g/dL (2.4-3.5); Glucose 101 mg/dL (70-105); Lipase 36 U/L (8-78); Potassium 3.8 mmol/L (3.5-5.1); Protein, Total 7.6 g/dL (6.0-8.3); Sodium 138 mmol/L (136-145)
--- NOTE | 2018-01-31 14:20 | CT ---
CT ABDOMEN AND PELVIS WITH CONTRAST: 01/31/18 COMPARISON: 12/29/17. CT abdomen/pelvis 11/22/17. HISTORY: Right lower quadrant abdominal pain. Patient had renal surgery on January 05 and a renal mass was r emoved at that time. TECHNIQUE: Multiple contiguous axial images were obtained in a CT of the abdomen and pelvis with contrast. Coron al reformats were performed. FINDINGS: Postsurgical changes are seen in the right kidney. A small amount of perinephric stranding is likely secondary to postoperative change. There is no evidence of hydronephrosis. No calculi are seen in eit her kidney. There is a stable hypodensity in the left lobe of the liver which may represent a small cyst. There a re small nonobstructing calcifications in the lower pole of the left kidney measuring up to 3 mm in s ize. The gallbladder, adrenal glands, spleen, and pancrease are unremarkable. No free air or free flu id are seen in the abdomen or pelvis. The large and small bowel are unremarkable. The appendix is nor mal. No abdominal or pelvic lymphadenopathy are seen. Degenerative changes are seen in the spine. The visualized inferior thorax and abdominal wall soft ti ssues are unremarkable. IMPRESSION: 1. Postsurgical changes of the right kidney without acute intra-abdominal/pelvic abnormality. 2. Nonobstructing renal calcifications. POS: [facility]
[2018-01-31 14:21] LABS: Bilirubin Negative (Negative); Blood, Urine Negative (Negative); Clarity CLEAR (Clear); Glucose, Urine (Dipstick) Negative (Negative); Leukocyte Negative (Negative); Nitrite Negative (Negative); Protein, Urine (Dipstick) Negative (Neg-Trace); Specific Gravity, Urine 1.017 (1.002-1.036); Urobilinogen 0.2 mg/dL (0.2-1.0); pH, Urine 6.5 (5.0-9.0)
== END 2018-01-31 15:28 | disposition home or self-care (01) ==
LOC: ERS 12:12
DX: G89.18 Other acute postprocedural pain (principal); R10.31 Right lower quadrant pain; Z79.899 Other long term (current) drug therapy
CPT/HCPCS: 74177; 80053; 81003; 83690; 85025; 96360; J2405

== ENCOUNTER 2018-02-14 08:17 | Outpatient (CLI) | payer OTHER ==
--- NOTE | 2018-02-14 09:37 | RAD ---
CHEST 2 VIEW: HISTORY: Dyspnea. COMPARISON: Radiograph of 01/10/2018. FINDINGS: Lungs are clear. No pneumothorax or effusion. Cardiac silhouette and mediastinal contours are withi n normal limits. IMPRESSION: No acute intrathoracic abnormality. POS: [facility]
== END 2018-02-14 08:18 | disposition home or self-care (01) ==
LOC: RAD 08:17
PROVIDERS: ATTEND Internal Medicine Critical Care Medicine
DX: R06.00 Dyspnea, unspecified (principal)
CPT/HCPCS: 71046

== ENCOUNTER 2022-06-02 13:00 | Outpatient (CLI) | payer BC ==
[~2022-06-02 13:00] MED LIST changes: -ISOVUE-370 76%-LOCM 1 ML ONE; +Iopamidol-370 76% 500 ML 1 ML ONE
== END 2022-06-02 13:01 | disposition home or self-care (01) ==
LOC: BICCT 13:00
PROVIDERS: ATTEND Surgery
DX: R10.31 Right lower quadrant pain (principal); K76.89 Other specified diseases of liver
CPT/HCPCS: 74177; 82565; Q9967

== ENCOUNTER 2025-02-26 09:08 | Outpatient (CLI) | payer BC ==
[2025-02-26 09:59] LABS: Estimated GFR - POC 99.0
== END 2025-02-26 09:09 | disposition home or self-care (01) ==
LOC: CT 09:08
PROVIDERS: ATTEND Specialist
DX: R10.24 Suprapubic pain (principal); N20.0 Calculus of kidney; K76.89 Other specified diseases of liver; N28.1 Cyst of kidney, acquired; Z85.528 Personal history of other malignant neoplasm of kidney; Z98.890 Other specified postprocedural states
CPT/HCPCS: 36415; 74178; 82565